=== PATIENT | male | born 1965 | race Caucasian/White ===

== ENCOUNTER 2024-12-12 21:54 | Inpatient (IN) | payer OTHER, SELFPAY ==
[2024-12-12] VITALS (7 sets, daily range): BP systolic 99–122; BP diastolic 68–74
[2024-12-12 17:47] LABS: Lactic Acid 1.7 mmol/L (0.7-2.0)
[2024-12-12 17:49] LABS: ALT (SGPT) 21 U/L (0-50); AST (SGOT) 20 U/L (17-59); Albumin 4.7 g/dl (3.5-5.0); Alkaline Phosphatase 120 U/L (38-126); Blood Urea Nitrogen 26 mg/dl (9-20); Carbon Dioxide 22 mmol/L (22-30); Chloride 102 mmol/L (98-107); Glucose 187 mg/dl (70-99); Potassium 4.3 mmol/L (3.5-5.1); Sodium 139 mmol/L (135-145); Total Bilirubin 1.1 mg/dl (0.2-1.3); Total Protein 8.4 g/dl (6.3-8.2); eGFR 57.54
[2024-12-12 17:56] LABS: Hematocrit 42.3 % (39.0-52.0); Hemoglobin 15.2 g/dL (13.0-18.0); Mean Corp Hgb Conc. 35.9 g/dL (33.0-37.0); Mean Corpuscular Hgb 32.3 pg (27.0-31.0); Mean Platelet Volume 8.9 fL (7.4-10.4); Platelet Count 424 10^3/uL (130-400); Red Cell Dist. Width 13.2 % (11.5-14.5); White Blood Cell Count 29.8 10^3/uL (4.8-10.8)
[2024-12-12 18:01] LABS: COVID-19 Antigen Negative (Negative)
[2024-12-12] MEDS: NSS 1000 IV (18:03)
--- NOTE | 2024-12-12 18:06 | ED.GENMED ---
History of Present Illness
General
Chief Complaint: Fever
Source: patient
Exam Limitations: none
Time Seen by Provider: 12/12/24 17:43
Nursing documentation reviewed up to this point in time: agreed with
History of Present Illness
History of Present Illness:
Patient presents to ED from [facility] secondary to sudden onset of fever and chills, upon waking up this morning. Patient reports chronic intermittent cough. Denies chest pain or shortness of breath. Denies nausea,
vomiting, or diarrhea. Denies headache. Denies sore throat. Denies rash. Denies open wound. Patient does have history of high diabetes.
Review of Systems
Review of Systems
Allergies reviewed?: Yes
All Other Systems: ROS reviewed and negative except as documented in HPI and ROS
Constitutional: Reports fever and chills
EENT: Reports no symptoms
Respiratory: Reports cough; Denies trouble breathing
Cardiac: Reports no symptoms
ABD/GI: Reports no symptoms; Denies nausea, vomiting or diarrhea
: Reports no symptoms
Musculoskeletal: Reports no symptoms
Skin: Reports no symptoms
Neurological: Reports no symptoms
Phy Exam
Physical Exam
Physical Exam:
Physical Exam
General: no apparent distress, not acutely ill. afebrile
Head: nc/at. eomi
Neck: supple. normal range of motion.
Heart: s1/s2 regular rate and rhythm, no murmur.
Lungs: no acute respiratory distress. clear bilaterally
Abdomen: normal bowel sounds. not tender.
Neuro: alert and oriented x 3. no focal neurological deficits
Skin: no rash
Psychiatric: well kept. interactive and cooperative
Extremities: no edema. no calf tenderness.
Course
Orders/Labs/Results
Orders:
Orders
12/12/24 17:26
COVID-19 Antigen Urgent
Source: Nasal Swab
Complete Blood Count/With Diff Urgent
Comprehensive Metabolic Panel Urgent
Lactic Acid Urgent
Blood Culture Urgent
VIRA Source: Blood/Venous
Specimen Description:
Influenza A+B Rapid Molecular Urgent
VIRA Source: Nasal Swab
Specimen Description:
12/12/24 17:59
CR Chest - 2 Views Urgent
Comment:
Reason For Exam: fever/cough
12/12/24 18:00
0.9% Sodium Chloride 1000 ml [Nss] 1,000 ml IV BOLUS
Ibuprofen [Motrin] 400 mg PO NOW STA
12/12/24 19:52
Urinalysis Reflex To Culture Urgent
Date Specimen was Collected: 12/12/24
Time Specimen was Collected: 19:51
Urine Microscopic Reflex Cult Urgent
12/12/24 21:27
Piperacillin/Tazo 3.375 Gram [Zosyn] 3.375 gram in 50 ml IV NOW
12/12/24 21:29
Vancomycin [Vancocin] 1,500 mg 0.9% Sodium Chloride 500 ml [Nss] 500 ml IV NOW
12/12/24 21:36
Admit/Transfer Patient As Directed
Co-Sign Provider:
Level of Care: Inpatient admission
Assign to:: Telemetry
Physician / Group: Seth Barnard
Diagnosis: sepsis
Reason for Telemetry: Arrhythmia
Date to Stop Telemetry: 12/15/24
Time to Stop Telemetry: 11:00
Reason for Hospitalization: sepsis
Expected length of stay greater than two midnights?: Yes
ELOS- Estimated Length of Stay in days: 3
I certify the patient meets the requirements for IP care: Yes
PRN Pain Medication Management As Directed
May give lesser potent ordered pain med per pt: Yes
preference::
Protocol:: Medication orders for pain may be administered in a
manner that supports deferring to patient preference
when the pt is:
- Requesting an ordered lesser potent pain medication.
Least to most potent pain medications are defined
as: acetaminophen < NSAID < tramadol < opioids
(morphine, oxycodone, hydromorphone).
- Requesting a lesser dose of the same medication IF
ORDERED.
- Requesting a less intrusive route of administration
if both routes are prescribed by the provider (PO <
IV).
12/12/24 21:37
Code Status As Directed
Resuscitation Status: Full Code
12/12/24 21:56
Blood Culture Urgent
VIRA Source: Blood/Venous
Specimen Description:
12/12/24 23:46
0.9% Sodium Chloride 1000 ml [Nss] 1,000 ml IV 150 mls/hr
Acetaminophen [Tylenol] 650 mg PO Q4HPRN PRN
12/12/24 23:46
Activity As Directed
Activity Level: Out of Bed-Early Mobility
Vital Signs As Directed
Frequency: Per unit guidelines
Weight As Directed
Frequency: Once
DX Deep Vein Thrombosis Video Routine
12/13/24 00:00
Heparin 5,000 units SC Q8
12/13/24 04:13
Basic Metabolic Panel IN AM
Complete Blood Count/No Diff IN AM
12/13/24 Breakfast
Cholesterol Lowering
At Your Request: Full Participation
Does patient need a safe tray?: Yes
Reason for opting out of [employer] order writing: Provider Decision
Cholesterol Lowering: Sodium, 2 Gram
12/15/24 11:00
DC Protocol for Telemetry ONCE
Abnormal Lab Results
12/12/24 12/12/24
17:26 19:52
WBC 29.8 H 10^3/uL
(4.8-10.8)
MCH 32.3 H pg
(27.0-31.0)
Plt Count 424 H 10^3/uL
(130-400)
Abs Immat Gran (auto) 0.2 H 10^3/uL
(0-0.05)
Absolute Neuts (auto) 26.9 H 10^3/uL
(1.4-6.5)
Absolute Monos (auto) 1.3 H 10^3/uL
(0.1-0.6)
Immature Gran % 0.7 H %
(0-0.5)
Neutrophils % 90.1 H %
(42.2-75.2)
Lymphocytes % 4.1 L %
(20.5-51.1)
BUN 26 H mg/dl
(9-20)
Creatinine 1.4 H mg/dL
(0.7-1.3)
Glucose 187 H mg/dl
(70-99)
Total Protein 8.4 H g/dl
(6.3-8.2)
Urine Ketones 1+ A
(Negative)
Urine Albumin (Reflex) 1+ A
(Neg - Trace)
12/12/24 17:26
12/12/24 17:26
Vital Signs
Initial and Last Documented VS:
Initial Vital Signs
Temp Pulse Resp BP Pulse Ox
100.6 F H 110 18 116/68 99
12/12/24 17:12 12/12/24 17:12 12/12/24 17:12 12/12/24 17:12 12/12/24 17:12
Last Documented Vital Signs
Temp Pulse Resp BP Pulse Ox
100.8 F H 97 14 115/63 92
12/13/24 14:00 12/13/24 14:00 12/13/24 14:00 12/13/24 14:00 12/13/24 14:00
MDM/Problems Addressed
MDM/Problems Addressed:
Patient with febrile illness with significant leukocytosis. No clear etiology for source of fever identified in ED. Possible flulike illness? Patient will be admitted for further evaluation and treatment.
Blood culture pending.
*Critical Care Note
Total Time (30-74mins, 75-104mins- exclusive of procedures): Not Applicable
ED Attending Note
-
Portions of this chart may have been created with voice recognition software.� Occasional wrong word or��sound alike� substitutions may have occurred due to the inherent limitations of voice recognition software.
Discharge Plan
Departure
Patient Disposition: Admit
Date of Disposition: 12/12/24
Time of Disposition: 20:45
Presentation/result/management discussed w/ accepting MD/DO: Hospitalist
Discharge Problem:
Fever, Leukocytosis
Interventions
Interventions:
*Risk Screen - Suicide Last Done: 12/12/24 17:18
*General Assessment Last Done: 12/12/24 17:18
*Neglect/Abuse Screening Last Done: 12/12/24 17:18
ED- Fall Risk Assessment Last Done: 12/13/24 03:29
*ED COVID-19 Vaccine History Last Done: 12/12/24 17:18
ED- Neurological Assessment Last Done: 12/12/24 17:19
ED-Skin Assessment Last Done: 12/12/24 17:19
[2024-12-12 18:33] LABS: % Basophils 0.7 % (0-2); % Immature Granulocytes 0.7 % (0-0.5); % Lymphocytes 4.1 % (20.5-51.1); % Monocytes 4.4 % (1.7-9.3); % Neutrophils 90.1 % (42.2-75.2); Absolute Basophils 0.2 10^3/uL (0-0.2); Absolute Immature Granulocytes 0.2 10^3/uL (0-0.05); Absolute Lymphocytes 1.2 10^3/uL (1.2-3.4); Absolute Monocytes 1.3 10^3/uL (0.1-0.6); Absolute Neutrophils 26.9 10^3/uL (1.4-6.5); Nucleated Red Blood Cells % 0 % (-)
[2024-12-12 20:00] LABS: Urine Albumin 1+ (Neg - Trace); Urine Bilirubin Negative (Negative); Urine Character Clear (Clear); Urine Color Yellow; Urine Glucose Negative (Negative); Urine Ketone 1+ (Negative); Urine Leukocyte Negative (Negative); Urine Nitrite Negative (Negative); Urine Occult Blood Negative (Negative); Urine Urobilinogen 1+ (Neg - 1+); Urine pH 6.5 (5.0-9.0)
[2024-12-12 20:29] LABS: Urine Red Blood Cell 0-2 /HPF (0-2); Urine Squamous Cell 0-2 /LPF (Few); Urine White Cell 0-2 /HPF (0-5)
--- NOTE | 2024-12-12 20:53 | HPS.HSE ---
Addendum entered and electronically signed by Seth Barnard DO 12/12/24 22:34:
Patient seen and examined independently. Agree with findings and plan as set forth by RONEN Sequeira.
Patient is a 59y M with PMH significant for DM-II and arthritis who presents to ED complaining of shaking chills and malaise. Patient states that he has had mild, non-productive cough for a few days. Mild sore throat. Some chest discomfort
with coughing. No GI or symptoms. No known sick contacts - though he is incarcerated at present. Patient had fever this evening and was transported to the ED for further evaluation. He is febrile here with leukocytosis, tachycardia. No other
focal complaints. CXR clear / lung exam unremarkable.
Ass:
Sepsis - suspected pulmonary origin
DM-II
Renal Insufficiency - FANTA v CKD
Dyslipidemia
DJD
Plan:
Admit for further evaluation and treatment.
Patient presents with fever, leukocytosis and tachycardia. Pulmonary symptoms.
Empiric abx for now for possible pulmonary source pending culture data / further work-up.
Consider additional imaging, CT C/A/P if fever persists.
Follow for any new / focal symptoms.
Supportive care including IVFs, etc.
Follow for clinical improvement.
Hold metformin and cover with SSI as needed for now.
Update A1C.
Original Note:
Family Physician
-
Family Physician: Facility [facility]
Chief Complaint
-
fever
History of Present Illness
Patient is a 59-year-old male with past medical history significant for diabetes, hyperlipidemia and arthritis who reported to [place] ED from [facility] for evaluation of acute onset fever and chills this morning. Patient
reports mild shortness of breath and sore throat. He denies any chest pain, cough, nausea, vomiting, constipation, diarrhea or urinary symptoms.
Medical History
Past Medical History
Past Medical History: Reports Other
Additional Past Medical History:
diabetes
hyperlipidemia
arthritis
Past Surgical History: Reports None
Social History
Tobacco: Non-smoker
Living: [facility]
Family History
Family History: Not pertinent
Allergies / Home Medications
Allergies reflects when Allergies were last updated in [employer].
Home Medications with original date entered in [employer]
Allergy/Medication List:
Allergies
Allergy/AdvReac Type Severity Reaction Status Date / Time
No Known Allergies Allergy Unverified 12/12/24 17:18
Home Medications
atorvastatin 10 mg tablet 10 mg PO HS 12/12/24
meloxicam 7.5 mg tablet 7.5 mg PO DAILY 12/12/24
metformin 1,000 mg tablet 1,000 mg PO BID 12/12/24
multivitamin 1 tab PO DAILY 12/12/24
Review of Systems
-
History Source: Patient
Constitutional: Reports Fever and Chills
EENT: Reports Sore Throat
Respiratory: Reports No Symptoms
Cardiac: Reports No Symptoms
Abdomen/GI: Reports No Symptoms
: Reports No Symptoms
Musculoskeletal: Reports No Symptoms
Skin: Reports No Symptoms
Neurological: Reports No Symptoms
Endocrine: Reports No Symptoms
Hematologic/Lymphatic: Reports No Symptoms
Psych: Reports No Symptoms
Physical Exam
Vital Signs
Vital Signs
Temp Pulse Resp BP Pulse Ox
100.6 F H 95 16 99/74 98
12/12/24 17:12 12/12/24 19:15 12/12/24 18:05 12/12/24 19:00 12/12/24 19:15
Physical Exam
General: Well Developed, Well Nourished, No Apparent Distress, Conversant and Fever
HEENT: NormoCephalic, Moist mucous membranes, Atraumatic, [place] Conjunctivae, Nose Appears Normal and Ears Appear Normal
Respiratory: Clear, Non Labored Respirations and Decreased Breath Sounds
Cardiac: S1/S2, Regular Rhythm and Tachycardia; No Murmur, Rub or Gallop
Breast: Deferred by me
GI: Soft, Non Tender, Non Distended and Normal Bowel Sounds; No Organomegaly
Rectal: Deferred by Provider
Genito-urinary: Deferred by me
Musculoskeletal: No Clubbing, No Cyanosis and Other (bilateral hand edema)
Skin: Warm and IV/Catheter Site; No Rash
Neuro: Awake, Alert, AO x 3 and Nonfocal/grossly intact
Laboratory Results
-
12/12/24 17:26
12/12/24 17:26
Laboratory Results
Lactic Acid 1.7 mmol/L (0.7-2.0) 12/12/24 17:26
Total Bilirubin 1.1 mg/dl (0.2-1.3) 12/12/24 17:26
AST 20 U/L (17-59) 12/12/24 17:26
ALT 21 U/L (0-50) 12/12/24 17:26
Alkaline Phosphatase 120 U/L (38-126) 12/12/24 17:26
Data Reviewed
-
Lab Data: Labs Reviewed by me (WBC 29.8, BUN 26, Creat 1.4)
Impression/Plan
-
IMPRESSION/PLAN:
#sepsis of unknown origin
Covid and Influenza: negative
CXR: pending
WBC 29.8
- Admit to telemetry
- IVF
- Vanco and Zosyn
- supportive care
- consider CT scan if blood cultures negative
#diabetes
- AccuCheck AC & HS
- SSI
- hold metformin
#hyperlipidemia
- continue atorvastatin
#osteoarthritis
- continue meloxicam
#acute kidney injury
BUN 26, Creat 1.4
- IVF
- monitor BMP
Code status: full code
DVT Prophylaxis: heparin sq
[2024-12-12] MEDS: ZOSYN 50 IV (21:57)
[2024-12-12] MEDS: VANCOCIN 530 MG IV (23:26)
[2024-12-13] VITALS (16 sets, daily range): BP systolic 102–144; BP diastolic 58–83; BMI 26.1
[2024-12-13 00:08] LABS: Glucose - Point of Care 96 mg/dl (70-99)
[2024-12-13] MEDS: TYLENOL 650 MG PO ×4 (00:14→23:53)
[2024-12-13] MEDS: LIPITOR 10 MG PO ×2 (00:15→20:49)
[2024-12-13] MEDS: HEPARIN 5000 UNITS SC ×4 (00:17→23:25)
[2024-12-13] MEDS: NSS 1000 IV ×2 (00:22→07:53)
[2024-12-13] MEDS: ZOSYN 50 IV ×2 (04:16→10:45)
[2024-12-13 04:46] LABS: Hematocrit 35.9 % (39.0-52.0); Hemoglobin 12.9 g/dL (13.0-18.0); Mean Corp Hgb Conc. 35.9 g/dL (33.0-37.0); Mean Corpuscular Hgb 32.4 pg (27.0-31.0); Mean Corpuscular Volume 90.2 fL (80.0-94.0); Mean Platelet Volume 9.1 fL (7.4-10.4); Platelet Count 332 10^3/uL (130-400); Red Blood Cell Count 3.98 10^6/uL (4.70-6.10); Red Cell Dist. Width 13.3 % (11.5-14.5); White Blood Cell Count 26.2 10^3/uL (4.8-10.8)
[2024-12-13 04:57] LABS: Blood Urea Nitrogen 26 mg/dl (9-20); Calcium 8.3 mg/dl (8.4-10.2); Carbon Dioxide 25 mmol/L (22-30); Chloride 109 mmol/L (98-107); Estimated Creatinine Clearance 53 ml/min; Glucose 100 mg/dl (70-99); Potassium 3.9 mmol/L (3.5-5.1); Sodium 140 mmol/L (135-145); eGFR > 60.00
[2024-12-13 07:36] LABS: Glycohemoglobin (HgbA1c) 5.6 % (4.0-5.6)
[2024-12-13] MEDS: NOVOLOG FLEXPEN-LOW RESISTANCE SC ×3 (07:52→16:47)
[2024-12-13 07:53] LABS: Glucose - Point of Care 111 mg/dl (70-99)
[2024-12-13] MEDS: THERAGRAN 1 TABLET PO (10:08)
[2024-12-13] MEDS: MOBIC 7.5 MG PO (10:08)
--- NOTE | 2024-12-13 10:35 | PHA.VAN.IN ---
Assessment
- Assessment
Renal Function: Unknown baseline
Concomitant Antimicrobials: piperacillin/tazobactam
Plan
- Plan
Initial / Loading Dose: 1500mg - 12/12 23:26
Maintenance Regimen: dosing by level - re-dose with 1000mg today
Monitorin/8 0600
MRSA Screen: Ordered per protocol
Pharmacokinetics Vancomycin I
- -
Patient Age: 59
Patient Sex: Male
Vancomycin Day #: 1
Indication: Bacteremia
Requesting Provider: Dr. Barnard
Pertinent Antimicrobial Allergies:
NKDA
Height / Weight:
Height 5 ft 5 in
Actual Weight 69 kg
Pertinent Past Medical History: DM II
- Vital Signs / Lab Results
Temp Pulse Resp BP Pulse Ox
101 F H 92 10 127/75 94
12/13/24 08:08 12/13/24 07:00 12/13/24 07:00 12/13/24 06:00 12/13/24 07:00
Lab Results - Hematology
12/12/24 12/13/24
17:26 04:13
WBC 29.8 H 26.2 H
Lab Results - Chemistry
12/12/24 12/13/24
17:26 04:13
BUN 26 H 26 H
Creatinine 1.4 H 1.3
Estimated Creat Clear 53
Albumin 4.7
12/12/24
17:26
Lactic Acid 1.7
Lab Results - Urine
12/12/24
19:52
Urine Nitrite (Reflex) Negative
Leukocyte Esterase Rfl Negative
Urine WBC (Reflex) 0-2
Ur Squamous Epith Cells 0-2
Microbiology Results
12/12/24 17:26 Influenza Types A & B (SANA) - Final
Nasal Swab Negative for Influenza A & B, NAAT
Negative results must be combined with clinical observations
and patient history.
Nucleic Acid Amplification test (NAAT)performed on the
[email or web address] [email or web address] platform.
--- NOTE | 2024-12-13 10:55 | CM ---
Patient from [facility]. Plan to return on discharge.
PLAN: Return to [facility]>
--- NOTE | 2024-12-13 11:02 | W.PN.HOSP.TC ---
Today's Communication/Plan
-
Continue antibiotics
IV fluids
Stop NSAIDs
Await cultures
Assessment / Plan
Assessment / Plan
Gen-AAOx3, NAD
HEENT-NC, AT, anicteric, clear oral mm
Neck-supple
CV-reg, no M, +S1/S2
Lungs-decreased breath sounds bilaterally.
Abd-soft, NT, ND
Ext-no edema
Musculoskeletal-no cyanosis, clubbing
Skin-warm and dry
Neuro-grossly non-focal
Psych-calm, cooperative
Sepsis -presumed to be due to community-acquired pneumonia given presentation with cough, shortness of breath. Blood cultures pending.
Chest x-ray clear on admission. Use antibiotics for community-acquired pneumonia. Acapella, incentive spirometer.
COVID, influenza negative. Check urinary antigens.
Patient states that he has had pneumonia twice before in his lifetime. Once as a child.
FANTA -likely due to sepsis, volume depletion. Creatinine coming down. Stop NSAIDs.
DM2 with hyperglycemia -glucose 100 this morning. On metformin prior to admission. Hold metformin for FANTA. Use low resistance scale.
Hyperlipidemia -on atorvastatin.
Chronic arthritis -likely osteoarthritis, on meloxicam. Was seen by rheumatology as an outpatient. Hold NSAIDs for FANTA.
Full code
Dispo -back to [facility] when medically stable.
Anticipated Discharge: 24 - 48 hours
Subjective/Interval History
-
Date of Service: December 13, 2024
Patient seen and examined. Feeling better overall. Denies shortness of breath. Complaining of cough.
Objective Data
-
Labs:
Laboratory Results
12/13/24
04:13
WBC 26.2 H
Hgb 12.9 L
Hct 35.9 L
Plt Count 332 D
Sodium 140
Potassium 3.9
Chloride 109 H
Carbon Dioxide 25
BUN 26 H
Creatinine 1.3
Glucose 100 H
Calcium 8.3 L
Vital Signs:
Vital Signs
Temp Pulse Resp BP Pulse Ox
101 F H 92 10 127/75 94
12/13/24 08:08 12/13/24 07:00 12/13/24 07:00 12/13/24 06:00 12/13/24 07:00
Review of Systems
-
History Source: Patient
All other systems: Reviewed and negative
[2024-12-13] MEDS: 0.45%NACL 1000 IV (12:34)
[2024-12-13 12:38] LABS: Glucose - Point of Care 103 mg/dl (70-99)
[2024-12-13] MEDS: STERILE WATER FOR INJECTION 10 ML IV (15:17)
[2024-12-13] MEDS: ROCEPHIN 1000 MG IV (15:17)
[2024-12-13] MEDS: ZITHROMAX INFUSION 250 IV (15:17)
[2024-12-13 16:47] LABS: Glucose - Point of Care 92 mg/dl (70-99)
[2024-12-13 21:23] LABS: Glucose - Point of Care 107 mg/dl (70-99)
[2024-12-14 03:31] VITALS: BP 104/57
[2024-12-14 07:00] VITALS: BP 113/66
[2024-12-14 07:20] LABS: Blood Urea Nitrogen 16 mg/dl (9-20); Calcium 8.5 mg/dl (8.4-10.2); Carbon Dioxide 18 mmol/L (22-30); Chloride 106 mmol/L (98-107); Estimated Creatinine Clearance 68 ml/min; Glucose 83 mg/dl (70-99); Potassium 4.3 mmol/L (3.5-5.1); Sodium 137 mmol/L (135-145); eGFR > 60.00
[2024-12-14] MEDS: THERAGRAN 1 TABLET PO (08:10)
[2024-12-14] MEDS: HEPARIN 5000 UNITS SC ×3 (08:10→23:09)
[2024-12-14 08:15] LABS: Glucose - Point of Care 91 mg/dl (70-99)
[2024-12-14] MEDS: NOVOLOG FLEXPEN-LOW RESISTANCE SC ×2 (08:31→18:22)
[2024-12-14 09:18] LABS: Hematocrit 38.6 % (39.0-52.0); Hemoglobin 13.6 g/dL (13.0-18.0); Mean Corp Hgb Conc. 35.2 g/dL (33.0-37.0); Mean Corpuscular Hgb 31.7 pg (27.0-31.0); Mean Platelet Volume 9.3 fL (7.4-10.4); Platelet Count 312 10^3/uL (130-400); Red Blood Cell Count 4.29 10^6/uL (4.70-6.10); Red Cell Dist. Width 13.3 % (11.5-14.5); White Blood Cell Count 19.3 10^3/uL (4.8-10.8)
--- NOTE | 2024-12-14 10:33 | W.PN.HOSP.TC ---
Today's Communication/Plan
-
Continue antibiotics
Assessment / Plan
Assessment / Plan
Gen-AAOx3, NAD
HEENT-NC, AT, anicteric, clear oral mm
Neck-supple
CV-reg, no M, +S1/S2
Lungs-decreased breath sounds bilaterally.
Abd-soft, NT, ND
Ext-no edema
Musculoskeletal-no cyanosis, clubbing
Skin-warm and dry
Neuro-grossly non-focal
Psych-calm, cooperative
Sepsis -presumed to be due to community-acquired pneumonia given presentation with cough, shortness of breath. Blood cultures negative so far.
Febrile last night, afebrile today. Leukocytosis slowly improving. Not requiring oxygen.
Chest x-ray clear on admission. Use antibiotics for community-acquired pneumonia. Acapella, incentive spirometer.
COVID, influenza negative. Check urinary antigens.
Patient states that he has had pneumonia twice before in his lifetime. Once as a child.
FANTA -likely due to sepsis, volume depletion. Creatinine coming down. Stop NSAIDs.
DM2 with hyperglycemia -glucose 83 this morning. On metformin prior to admission. Hold metformin for FANTA. Use low resistance scale.
Hyperlipidemia -on atorvastatin.
Chronic arthritis -likely osteoarthritis, on meloxicam. Was seen by rheumatology as an outpatient. Hold NSAIDs for FANTA.
Full code
Dispo -back to [facility] when medically stable.
Anticipated Discharge: Within 24 hours
Subjective/Interval History
-
Date of Service: December 14, 2024
Patient seen and examined. Overall feeling better. No new complaints.
Objective Data
-
Labs:
Laboratory Results
12/14/24
06:48
WBC 19.3 H
Hgb 13.6
Hct 38.6 L
Plt Count 312
Sodium 137
Potassium 4.3
Chloride 106
Carbon Dioxide 18 L
BUN 16
Creatinine 1.0
Glucose 83
Calcium 8.5
Vital Signs:
Vital Signs
Temp Pulse Resp BP Pulse Ox
98.0 F 95 15 113/66 98
12/14/24 07:00 12/14/24 07:00 12/14/24 07:00 12/14/24 07:00 12/14/24 07:00
I&O
12/13/24 12/14/24 12/15/24
06:59 06:59 06:59
Output Total 450 / 450
Balance -450 / -450
Review of Systems
-
History Source: Patient
All other systems: Reviewed and negative
[2024-12-14 10:58] LABS: % Basophils 0.5 % (0-2); % Eosinophils 2.6 % (0-6); % Immature Granulocytes 0.9 % (0-0.5); % Lymphocytes 8.6 % (20.5-51.1); % Monocytes 4.4 % (1.7-9.3); Absolute Basophils 0.1 10^3/uL (0-0.2); Absolute Eosinophils 0.5 10^3/uL (0-0.7); Absolute Immature Granulocytes 0.2 10^3/uL (0-0.05); Absolute Lymphocytes 1.7 10^3/uL (1.2-3.4); Absolute Monocytes 0.8 10^3/uL (0.1-0.6); Nucleated Red Blood Cells % 0 % (-)
[2024-12-14 11:00] VITALS: BP 114/71
[2024-12-14 12:25] LABS: Glucose - Point of Care 159 mg/dl (70-99)
[2024-12-14] MEDS: ROCEPHIN 1000 MG IV (14:15)
[2024-12-14] MEDS: STERILE WATER FOR INJECTION 10 ML IV (14:15)
[2024-12-14] MEDS: ZITHROMAX INFUSION 250 IV (14:22)
[2024-12-14] MEDS: NOVOLOG FLEXPEN-LOW RESISTANCE 1 UNITS SC (14:32)
[2024-12-14 15:00] VITALS: BP 103/56
[2024-12-14 16:56] LABS: Glucose - Point of Care 101 mg/dl (70-99)
[2024-12-14 19:55] VITALS: BP 136/70
[2024-12-14 21:45] LABS: Glucose - Point of Care 91 mg/dl (70-99)
[2024-12-14] MEDS: LIPITOR 10 MG PO (21:48)
[2024-12-14 23:15] VITALS: BP 129/67
[2024-12-15 03:48] VITALS: BP 123/71
[2024-12-15 07:00] VITALS: BP 124/73
[2024-12-15 07:31] LABS: % Basophils 0.7 % (0-2); % Eosinophils 3.8 % (0-6); % Immature Granulocytes 0.8 % (0-0.5); % Lymphocytes 11.5 % (20.5-51.1); % Monocytes 6.1 % (1.7-9.3); % Neutrophils 77.1 % (42.2-75.2); Absolute Basophils 0.1 10^3/uL (0-0.2); Absolute Eosinophils 0.6 10^3/uL (0-0.7); Absolute Immature Granulocytes 0.1 10^3/uL (0-0.05); Absolute Lymphocytes 1.8 10^3/uL (1.2-3.4); Absolute Neutrophils 12.3 10^3/uL (1.4-6.5); Hematocrit 37.8 % (39.0-52.0); Hemoglobin 13.5 g/dL (13.0-18.0); Mean Corp Hgb Conc. 35.7 g/dL (33.0-37.0); Mean Corpuscular Hgb 31.9 pg (27.0-31.0); Mean Corpuscular Volume 89.4 fL (80.0-94.0); Mean Platelet Volume 9.5 fL (7.4-10.4); Nucleated Red Blood Cells % 0 % (-); Platelet Count 374 10^3/uL (130-400); Red Blood Cell Count 4.23 10^6/uL (4.70-6.10); Red Cell Dist. Width 13.4 % (11.5-14.5)
[2024-12-15 08:21] LABS: Blood Urea Nitrogen 16 mg/dl (9-20); Calcium 8.9 mg/dl (8.4-10.2); Carbon Dioxide 22 mmol/L (22-30); Chloride 105 mmol/L (98-107); Estimated Creatinine Clearance 76 ml/min; Glucose 87 mg/dl (70-99); Potassium 4.1 mmol/L (3.5-5.1); Sodium 138 mmol/L (135-145); eGFR > 60.00
[2024-12-15 08:33] LABS: Glucose - Point of Care 92 mg/dl (70-99)
[2024-12-15] MEDS: NOVOLOG FLEXPEN-LOW RESISTANCE SC (08:49)
[2024-12-15] MEDS: HEPARIN 5000 UNITS SC (08:50)
[2024-12-15] MEDS: THERAGRAN 1 TABLET PO (08:50)
[2024-12-15] MEDS: TYLENOL 650 MG PO (09:31)
--- NOTE | 2024-12-15 10:05 | W.PN.HOSP.TC ---
Today's Communication/Plan
-
Ambulatory pulse ox on room air
Discharge
Assessment / Plan
Assessment / Plan
Gen-AAOx3, NAD
HEENT-NC, AT, anicteric, clear oral mm
Neck-supple
CV-reg, no M, +S1/S2
Lungs-decreased breath sounds bilaterally.
Abd-soft, NT, ND
Ext-no edema
Musculoskeletal-no cyanosis, clubbing
Skin-warm and dry
Neuro-grossly non-focal
Psych-calm, cooperative
Sepsis -presumed to be due to community-acquired pneumonia given presentation with cough, shortness of breath. Blood cultures negative so far. Sepsis resolved.
Last fever was evening of December 13. Leukocytosis slowly improving. Not requiring oxygen.
Chest x-ray clear on admission. Use antibiotics for community-acquired pneumonia. Acapella, incentive spirometer. Day 3 of antibiotics.
COVID, influenza negative. Urinary antigens negative.
Patient states that he has had pneumonia twice before in his lifetime. Once as a child.
Check ambulatory pulse ox on room air. Discussed with nursing.
FANTA -likely due to sepsis, volume depletion. FANTA resolved. Stop NSAIDs.
DM2 with hyperglycemia -glucose 87 this morning. On metformin prior to admission. Hold metformin for FANTA. Use low resistance scale.
Hyperlipidemia -on atorvastatin.
Chronic arthritis -likely osteoarthritis, on meloxicam. Was seen by rheumatology as an outpatient. Hold NSAIDs for FANTA.
Full code
Dispo -anticipate discharge back to [facility] today. Await ambulatory pulse ox on room air. Continue oral antibiotics on discharge.
Discussed with nursing.
32-minute spent in discharge process.
Anticipated Discharge: Today
Subjective/Interval History
-
Date of Service: December 15, 2024
Patient seen and examined. No complaints.
Objective Data
-
Labs:
Laboratory Results
12/15/24
07:02
WBC 16.0 H
Hgb 13.5
Hct 37.8 L
Plt Count 374
Sodium 138
Potassium 4.1
Chloride 105
Carbon Dioxide 22
BUN 16
Creatinine 0.9
Glucose 87
Calcium 8.9
Vital Signs:
Vital Signs
Temp Pulse Resp BP Pulse Ox
98.1 F 97 18 124/73 96
12/15/24 07:00 12/15/24 07:00 12/15/24 07:00 12/15/24 07:00 12/15/24 07:00
I&O
12/14/24 12/15/24 12/16/24
06:59 06:59 06:59
Intake Total 1320 / 1320
Output Total 450 / 450 550 / 550
Balance -450 / -450 770 / 770
Review of Systems
-
History Source: Patient
All other systems: Reviewed and negative
[2024-12-15 11:00] VITALS: BP 128/76
[2024-12-15 12:09] LABS: Glucose - Point of Care 159 mg/dl (70-99)
[2024-12-15] MEDS: NOVOLOG FLEXPEN-LOW RESISTANCE 1 UNITS SC (13:07)
[2024-12-15] MEDS: ROCEPHIN 1000 MG IV (13:07)
[2024-12-15] MEDS: STERILE WATER FOR INJECTION 10 ML IV (13:08)
--- NOTE | 2024-12-15 13:13 | W.DS.TRANS ---
DC Summary - [employer]
-
Discharge Instructions:
Discharge Diagnosis/Procedures Sepsis, community-acquired pneumonia, acute
kidney injury
Diet Regular
Activity As tolerated
Driving Restrictions As prior to admission
Bathing Restrictions None
Instructions:
Stand-Alone Forms:
Changes to Home Medications: No
Discharge Medications:
DC Medications w/original date entered in [employer]
atorvastatin 10 mg tablet 10 mg PO HS High Cholesterol 12/12/24
meloxicam 7.5 mg tablet 7.5 mg PO DAILYPRN PRN MILD PAIN 12/12/24
metformin 1,000 mg tablet 1,000 mg PO BID Diabetes 12/12/24
amoxicillin 875 mg-potassium clavulanate 125 mg tablet 1 tab PO BID #8 tabs 12/15/24
azithromycin 500 mg tablet 500 mg PO DAILY 14 days #3 tabs 12/15/24
multivitamin with folic acid 400 mcg tablet (Tab-A-Earl) 1 tab PO DAILY #0 tabs 12/15/24
Home Medication Changes
Pending Results: No
[2024-12-15] MEDS: ZITHROMAX INFUSION 250 IV (13:23)
[2024-12-15 15:34] VITALS: BP 126/79
== END 2024-12-15 15:30 | DRG 871 ==
LOC: 3 WEST ACU 21:54
PROVIDERS: Nurse Practitioner Family; ADMITTING PHYSICIAN Hospitalist; ATTENDING PHYSICIAN Hospitalist; EMERGENCY PHYSICIAN Emergency Medicine
DX: A41.9 Sepsis, unspecified organism (principal); J18.9 Pneumonia, unspecified organism; N17.9 Acute kidney failure, unspecified; E11.65 Type 2 diabetes mellitus with hyperglycemia; E78.5 Hyperlipidemia, unspecified; M19.90 Unspecified osteoarthritis, unspecified site; Z79.84 Long term (current) use of oral hypoglycemic drugs; Z20.822 Contact with and (suspected) exposure to COVID-19
CPT/HCPCS: 71046; 80048; 80053; 81003; 81015; 82962; 83036; 83605; 85025; 85027; 87040; 87449; 87502; 87641; 87811; 87899; 93005; 96360; 99285

== ENCOUNTER 2025-01-09 19:26 | Emergency (ER) | payer OTHER, SELFPAY ==
[2025-01-09 19:29] VITALS: BP 127/70
[2025-01-09 19:55] LABS: % Basophils 1.1 % (0-2); % Eosinophils 1.5 % (0-6); % Immature Granulocytes 0.4 % (0-0.5); Absolute Basophils 0.1 10^3/uL (0-0.2); Absolute Eosinophils 0.2 10^3/uL (0-0.7); Absolute Immature Granulocytes 0.1 10^3/uL (0-0.05); Absolute Lymphocytes 2.3 10^3/uL (1.2-3.4); Absolute Monocytes 0.6 10^3/uL (0.1-0.6); Absolute Neutrophils 9.4 10^3/uL (1.4-6.5); Hematocrit 42.9 % (39.0-52.0); Hemoglobin 15.3 g/dL (13.0-18.0); Mean Corp Hgb Conc. 35.7 g/dL (33.0-37.0); Mean Corpuscular Hgb 32.3 pg (27.0-31.0); Mean Corpuscular Volume 90.5 fL (80.0-94.0); Nucleated Red Blood Cells % 0 % (-); Platelet Count 439 10^3/uL (130-400); Red Blood Cell Count 4.74 10^6/uL (4.70-6.10); Red Cell Dist. Width 13.8 % (11.5-14.5); White Blood Cell Count 12.7 10^3/uL (4.8-10.8)
[2025-01-09 20:08] LABS: ALT (SGPT) 28 U/L (0-50); AST (SGOT) 27 U/L (17-59); Albumin 4.7 g/dl (3.5-5.0); Alkaline Phosphatase 110 U/L (38-126); Blood Urea Nitrogen 26 mg/dl (9-20); Calcium 9.8 mg/dl (8.4-10.2); Carbon Dioxide 25 mmol/L (22-30); Chloride 104 mmol/L (98-107); Glucose 163 mg/dl (70-99); Potassium 5.1 mmol/L (3.5-5.1); Sodium 141 mmol/L (135-145); Total Bilirubin 0.5 mg/dl (0.2-1.3); eGFR 52.97
--- NOTE | 2025-01-09 20:31 | ED.GENMED ---
History of Present Illness
General
Chief Complaint: Fainting/Passed Out
Source: patient and police
Exam Limitations: none
Time Seen by Provider: 01/09/25 19:49
Nursing documentation reviewed up to this point in time: agreed with
History of Present Illness
History of Present Illness:
59-year-old male with history hyperlipidemia, diabetes, recent admission for sepsis 2/2 community-acquired pneumonia presenting to the emergency department following syncopal episode earlier tonight. Patient states that he was taking a very warm
shower when he started to feel mildly lightheaded. When he was turning off the shower he lost consciousness and then fell striking his head and foot on the ground. Patient reports sustaining a laceration to his scalp and left foot. Patient denies
any preceding chest pain, shortness of breath, abdominal pain. Patient denies any recent fever or cough. He states his cough is improved greatly following discharge from hospital.
At this time�patient reports feeling much better. He denies any lingering dizziness. He denies any headache, vision changes, neck pain, back pain, numbness/tingling in the legs, bowel/bladder incontinence.
Patient does not take any blood thinners.
Review of Systems
Review of Systems
Allergies reviewed?: Yes
All Other Systems: ROS reviewed and negative except as documented in HPI and ROS
Phy Exam
Physical Exam
Physical Exam:
Vitals: Patient's vital signs are stable. Afebrile
General: Patient is well appearing, no acute distress
Skin: Warm and dry, no rashes or lesions
Head: Approximately 3.5 cm almost V-shaped laceration to left posterior scalp. Minimal bleeding
Eyes: Sclera nonicteric. EOMs intact. No nystagmus.
Throat: No tongue lacerations. Protecting airway. Trachea midline
Neck: Normal ROM, no cervical spine tenderness, no meningismus
Cardiac: Regular rate and rhythm, no murmurs. No tenderness to chest wall
Pulm: Normal respiratory effort, no wheezes, rales, rhonchi heard on exam. O2 saturation 99 on room air
Abdomen: Abdomen soft and nontender. No ecchymoses.
Extremities: Small abrasions to left great toe. Bilateral upper and lower extremities nontender with full range of motion. No bony tenderness of extremities. Bilateral upper and lower extremities neurovascularly intact.
Neuro: AAOx3. No focal neurologic deficits. Fluid speech.
Psychiatric: Normal affect.
Course
Orders/Labs/Results
Orders:
Orders
01/09/25 19:32
Electrocardiogram (*1) Urgent
Reason for Study: Chest Pain
Cardiac Monitoring- Treatment ONCE
EKG- Treatment ONCE
IV Insert/Care/Rem.- Treatment PRN
O2 Therapy [RESP] Urgent
Titrate/Wean O2 to maintain O2 sat greater than (%): 90
Special Instructions: Maintain sats >/=90%
Pulse Ox/spot Check [RESP] Urgent
Quantity: 1
Special Instructions: ON ROOM AIR
01/09/25 19:47
Complete Blood Count/With Diff Urgent
Comprehensive Metabolic Panel Urgent
01/09/25 20:30
CT Head W/o Iv Contrast Urgent
Comment:
Reason For Exam: unwitnessed fal
Cervical Spine wo Contrast CT [CT Cervical Spine W/o Iv Contr] Urgent
Comment:
Reason For Exam: unwitnessed fall with head strike
0.9% Sodium Chloride 1000 ml [Nss] 1,000 ml IV BOLUS
Tetanus/Diphth/Acelpertussis [Adacel] 0.5 ml IM .ONCE ONE
Foot, Left 3 View [CR Foot - Left Min 3 Views] Urgent
Comment:
Reason For Exam: fall
01/09/25 20:43
COVID-19 Antigen Urgent
Source: Nasal Swab
Troponin I Urgent
Influenza A+B Rapid Molecular Urgent
VIRA Source: Nasal Swab
Specimen Description:
01/09/25 22:38
Orthostatic VS- Treatment ONCE
01/09/25 22:39
CR Chest - 2 Views Urgent
Comment:
Reason For Exam: syncope, recent pneumonia
01/10/25 00:50
0.9% Sodium Chloride 500 ml [Nss] 500 ml IV BOLUS
Abnormal Lab Results
01/09/25
19:47
WBC 12.7 H 10^3/uL
(4.8-10.8)
MCH 32.3 H pg
(27.0-31.0)
Plt Count 439 H 10^3/uL
(130-400)
Abs Immat Gran (auto) 0.1 H 10^3/uL
(0-0.05)
Absolute Neuts (auto) 9.4 H 10^3/uL
(1.4-6.5)
Lymphocytes % 18.0 L %
(20.5-51.1)
BUN 26 H mg/dl
(9-20)
Creatinine 1.5 H mg/dL
(0.7-1.3)
Glucose 163 H mg/dl
(70-99)
Total Protein 9.0 H g/dl
(6.3-8.2)
01/09/25 19:47
01/09/25 19:47
Vital Signs
Initial and Last Documented VS:
Initial Vital Signs
Temp Pulse Resp BP Pulse Ox
97.5 F 95 19 127/70 95
01/09/25 19:29 01/09/25 19:29 01/09/25 19:29 01/09/25 19:29 01/09/25 19:29
Last Documented Vital Signs
Temp Pulse Resp BP Pulse Ox
97.5 F 82 16 132/73 99
01/09/25 19:29 01/10/25 02:00 01/10/25 02:00 01/10/25 02:00 01/10/25 02:00
Procedures
Laceration Closure
Posterior Scalp:
Status of Wound: clean
Size of Wound in cm: 3.5
Description of Wound Edges: ragged
Preparation: cleaned with saline
Anesthesia: 1% Lidocaine with epi
Revision/Debridement: routine- no revision
Wound exploration: explored to base- no FB
Type of Closure: single layer closure
Skin Closure Material: skin javier (6)
MDM/Problems Addressed
Differential Diagnosis Includes:
Not limited to: Vasovagal syncope, orthostatic syncope, acute dehydration, cardiac arrhythmia, viral illness, seizure
MDM/Problems Addressed:
59-year-old male presents after syncopal event immediately following hot shower today with associated head strike. No preceding chest pain, shortness of breath. Patient without any current complaints including headache, neck pain, nausea. Vitals
and exam as above. Basic labs initiated in triage. Leukocytosis of 12.7 which is improving following recent admission for pneumonia. Chemistry does show an FANTA likely prerenal from dehydration given elevation in BUN. EKG shows normal sinus
rhythm without signs of acute ischemic changes. Will irrigate and close laceration on scalp. Ultimately�history consistent with likely vasovagal syncope possibly from hot water and shower. Lower suspicion for cardiac syncope although will check
troponin. Do not suspect central process including seizure. Given unwitnessed fall with known head trauma�will obtain CT head/cervical spine. X-ray left foot given abrasions and evidence of trauma. Will check chest x-ray given recent admission
for pneumonia. Will give IV fluids and reassess. Patient declines analgesia at this time.
Update: Laceration on scalp was thoroughly irrigated with normal saline and closed with skin javier with hemostasis obtained. Topical antibiotic ointment applied. Troponin undetectable. CT head/cervical spine without evidence of traumatic
injury. Foot x-ray normal. Chest x-ray reviewed by me and attending which shows no evidence of pneumonia. Patient is received 1.5 L IV fluids in emergency department. He is ambulating without dizziness or instability in his symptoms have
improved. Patient is remained hemodynamically stable with no hypotension. With known FANTA�suspect dehydration likely contributed to syncope as well as possible vasovagal response. Feel patient is stable for discharge back to assisted. Discussed
importance of monitoring for signs of infection surrounding laceration, adequate hydration given FANTA and repeat lab work. Close return precautions discussed. Patient discussed with attending physician.
Chronic conditions affecting care:
Diabetes
Acute Exacerbation and/or Progression of Chronic Illness:
Acutely hyperglycemic
*Radiology
Radiology exam reviewed: preliminary read by ED provider (Chest x-ray read by me-no acute abnormality) and radiology read reviewed
*Pulse Oximetry
Patient hypoxic: no
*EKG
Interpreted by ED Provider?: Yes
EKG Intrepretation Date: 01/09/25
Interpretation: normal
Comparison EKG: changes noted
Heart Rate: 88
Rate: normal
Rhythm: sinus
[place]: normal axis
Interval: normal interval
QRS Pattern: normal QRS
Ischemia: no ischemia
*H[employer] And [employer]cher Interpretation
Rate: normal
Interpretation: normal
Heart Rate: 82
Rhythm: sinus
*Critical Care Note
Total Time (30-74mins, 75-104mins- exclusive of procedures): Not Applicable
Data Reviewed
Review of Other/Old Records Reveals: Discharge Summary (Discharge summary from 12/15/2024 after hospitalization for sepsis secondary to community-acquired pneumonia)
ED Attending Note
-
Portions of this chart may have been created with voice recognition software.� Occasional wrong word or��sound alike� substitutions may have occurred due to the inherent limitations of voice recognition software.
Discharge Plan
Departure
Patient Disposition: Senior Living
Date of Disposition: 01/10/25
Time of Disposition: 02:34
Discharge Problem:
Syncope, vasovagal, FANTA (acute kidney injury), Laceration of scalp
Instructions: Acute kidney injury, Syncope (Fainting) (DC), Laceration Repair With [facility], BLOOD PRESSURE
Prescriptions:
No Action
atorvastatin 10 mg Tablet
10 mg PO HS
meloxicam 7.5 mg Tablet
7.5 mg PO DAILYPRN PRN (Reason: MILD PAIN)
metformin 1,000 mg Tablet
1,000 mg PO BID
multivitamin with folic acid [Tab-A-Earl] 400 mcg Tablet
1 tab PO DAILY Qty: 0 0RF
acetaminophen 325 mg Tablet
650 mg PO BID PRN (Reason: mild pain)
albuterol sulfate 2.5 mg /3 mL (0.083 %) Solution For Nebulization
2.5 mg INHALATION QID PRN (Reason: wheezing)
Referrals:
[facility] [Family Provider] -
Activity Restrictions/Additional Instructions:
RETURN TO THE EMERGENCY DEPARTMENT WITH ANY FEVERS, COUGH, SEVERE HEADACHE, CHANGES IN MENTAL STATUS, PERSISTENT LIGHTHEADEDNESS/DIZZINESS, OR ANY OTHER CONCERNS
-Your laceration on your scalp was closed with javier today. 6 javier were placed. You should have these removed in 7 to 10 days. This can be done at your primary care, urgent care, nurse at correctional facility, etc. You should keep wound dry
for the next 48 hours. Is important to keep wound clean, wash with soap and water. You can apply antibiotic ointment and keep covered until stitches are removed. Monitor closely for signs of infection and return if needed.
-As discussed�your kidney function was elevated while in the emergency department. You were given 1.5 L IV fluids. It is important that you stay very well-hydrated. You should have these labs rechecked in 1 week to ensure improving.
Monitor your symptoms closely and return to the emergency department with any acute worsening/new symptoms or any other concerns
Interventions
Interventions:
*Risk Screen - Suicide Last Done: 01/09/25 19:29
*General Assessment Last Done: 01/09/25 19:29
*Neglect/Abuse Screening Last Done: 01/09/25 19:29
*ED- Fall Risk Assessment Last Done: 01/10/25 02:35
*ED COVID-19 Vaccine History Last Done: 01/09/25 19:29
*Nursing Disposition Last Done: 01/10/25 02:35
ED- Cardiac Assessment Last Done: 01/09/25 20:28
ED- Neurological Assessment Last Done: 01/09/25 20:28
Discharge Date and Time
Discharge Date/Time: 01/10/25 02:35
Print Language: GREENLANDIC
[2025-01-09 21:09] LABS: COVID-19 Antigen Negative (Negative)
[2025-01-09 21:21] LABS: Troponin I < 0.012 ng/ml
[2025-01-09] MEDS: NSS 1000 IV (21:38)
[2025-01-09] MEDS: ADACEL 0.5 ML IM (21:40)
[2025-01-09 23:37] VITALS: BMI 24.6
[2025-01-09 23:39] VITALS: BP 142/86
[2025-01-09 23:40] VITALS: BP 132/81; BP 133/78; BP 142/86; PULSE 73; PULSE 89; PULSE 96
[2025-01-09 23:41] VITALS: BP 133/78
[2025-01-09 23:43] VITALS: BP 132/81
[2025-01-10] VITALS: BP 146/86
[2025-01-10] MEDS: NSS 500 IV (00:50)
[2025-01-10 01:00] VITALS: BP 130/71
[2025-01-10 02:00] VITALS: BP 132/73
== END 2025-01-10 02:35 ==
LOC: EMR 19:26
PROVIDERS: Physician Assistant; EMERGENCY PHYSICIAN Emergency Medicine
DX: R55 Syncope and collapse (principal); N17.9 Acute kidney failure, unspecified; S01.01XA Laceration without foreign body of scalp, initial encounter; S90.412A Abrasion, left great toe, initial encounter; W19.XXXA Unspecified fall, initial encounter; E78.5 Hyperlipidemia, unspecified; E11.65 Type 2 diabetes mellitus with hyperglycemia
CPT/HCPCS: 12002; 90471; 99285; 96360; 96361; 70450; 71046; 72125; 73630; 80053; 84484; 85025; 87502; 87811; 90715; 93005